=== PATIENT | female | born 1955 | race Caucasian/White ===

== ENCOUNTER 2024-06-09 09:56 | Day surgery (SDC) | payer MEDICARE ==
[2024-06-09] VITALS (8 sets, daily range): BP systolic 94–158; BP diastolic 64–83
[~2024-06-09] VITALS: Ht 157.5 cm; Wt 97.1 kg
[~2024-06-09 09:56] MED LIST: ALPR.25 PO; ATOR20 PO; DULO60 PO; Flonase 0.05% N16 GM; HYDCHL25 PO; HYDHCL25 PO; LAMO25 PO; LISI20 PO; METO25ER PO; MONT10T PO; NORT25 PO; OMEP20ER PO; SUCR1 PO; TIZA4 PO; XOPENEX HFA15 GM
[2024-06-09] MEDS ORDERED: NS 1,000 ML IV ONE (13:47)
[2024-06-09] MEDS ORDERED: NS 250 ML IV ONE (13:47)
[2024-06-09] MEDS ORDERED: Nitroglycerin 2 MG/20 ML BTL ONE (13:47)
[2024-06-09] MEDS ORDERED: Verapamil HCL 2.5 MG/ML 2ML Injection ONE (13:47)
[2024-06-09] MEDS ORDERED: Heparin Sodium 1000 Units/ML 10ML MDV ONE (13:47)
[2024-06-09] MEDS ORDERED: Midazolam HCl 1MG / ML 2ML Vial ONE ×2 (14:10→15:09)
[2024-06-09] MEDS ORDERED: FentaNYL Citrate 50 MCG/ML 2 ML Injection ONE (14:10)
--- NOTE | 2024-06-09 15:57 | NUR ---
PT TO RECOVERY ROOM S/P LEFT AND RIGHT HEART CATH. PT AWAKE AND ALERT, DENIES COMPLAINTS. TR BAND TO RIGHT RADIAL SITE REVIEWED; WNL. RIGHT TR BAND SITE W/O SWELLING, BLEEDING, TENDERNESS. PT DENIES C/O PAIN, NUMBNESS TO HAND. FINGERS SLIGHTLY DUSKY W GOOD CAP REFILL. DR MAGALLANES AT BEDSIDE UPDATING PATIENT, FAMILY AT BEDSIDE WELL. PT PROSPER FOOD/FLUIDS.
--- NOTE | 2024-06-09 16:53 | NUR ---
ALL AIR FROM TR BAND REMOVED OVER 35 MIN. SITE IS STABLE, W/O SWELLING, BLEEDING, TENDERNESS. CIRC CHECK TO HAND WNL.
--- NOTE | 2024-06-09 17:55 | NUR ---
TR BAND REMOVED, SITE STABLE AFTER 1 HR. NO SWELLING, HEMATOMA, BLEEDING, TENDERNESS, NUMBNESS. CIRC CHECK WNL, FINGERS PINK AND WARM. VSS. PT UP TO GET DRESSED, PROSPER WELL. IV DC'D INTACT. VERBAL AND WRITTEN DC INFORMATION GIVEN TO PT AND PT' WITH CLEAR UNDERSTANDING. PT DC'D HOME IN STABLE CONDITION AT 1755. PT ESCORTED OUT VIA WHEELCHAIR, PT'S TO DRIVE.
== END 2024-06-09 23:00 | disposition home or self-care (01) ==
LOC: MHTC 09:56
DX: I27.20 Pulmonary hypertension, unspecified (principal); J45.909 Unspecified asthma, uncomplicated; I10 Essential (primary) hypertension; K21.9 Gastro-esophageal reflux disease without esophagitis; E78.5 Hyperlipidemia, unspecified; E11.9 Type 2 diabetes mellitus without complications; E66.9 Obesity, unspecified; Z68.39 Body mass index [BMI] 39.0-39.9, adult; Z88.1 Allergy status to other antibiotic agents; Z88.8 Allergy status to other drugs, medicaments and biological substances; Z88.5 Allergy status to narcotic agent; Z79.899 Other long term (current) drug therapy
CPT/HCPCS: 76937; 93456; 99152; C1769; C1887; C1894; J1644; J2250; J3010; J7030; J7050; Q9967